=== PATIENT | male | born 2000 | race Caucasian/White ===

== ENCOUNTER 2020-10-17 07:30 | Emergency (ER) | payer OTHER ==
[~2020-10-17] VITALS: Ht 182.9 cm; Wt 65.8 kg
[~2020-10-17 07:30] MED LIST: NORCO 5-325 TA1 EACH PO
[2020-10-17] MEDS ORDERED: CEPHALEXIN500 MG PO (09:27)
== END 2020-10-17 09:39 | disposition home or self-care (01) ==
LOC: ED 07:30
DX: S61.532A Puncture wound without foreign body of left wrist, initial encounter (principal); W22.8XXA Striking against or struck by other objects, initial encounter
CPT/HCPCS: 73110; 90471; 90715; 99283-25